=== PATIENT | female | born 1935 | race Two or more races ===

== ENCOUNTER 2024-04-27 09:01 | Outpatient (CLI) | payer OTHER | END 2024-04-27 09:02 | disposition home or self-care (01) | LOC: NUCLEAR 09:01 | PROVIDERS: ATTEND Specialist | DX: I87.2 Venous insufficiency (chronic) (peripheral) (principal) ==

== ENCOUNTER → 2024-05-04 09:08 | Outpatient (CLI) | payer OTHER | END | disposition home or self-care (01) | LOC: NUCLEAR 09:00 | PROVIDERS: ATTEND Specialist | DX: I73.9 Peripheral vascular disease, unspecified (principal) ==

== ENCOUNTER 2024-12-21 11:00 | Emergency (ER) | payer OTHER ==
[~2024-12-21] VITALS: Ht 152.4 cm; Wt 45.4 kg
[2024-12-21] MEDS ORDERED: DIGOXIN125 MCG PO (11:23)
[2024-12-21] MEDS ORDERED: METOPROLOL SUC100 MG PO (11:23)
[2024-12-21] MEDS ORDERED: ISOSORBIDE MONO30 M2 PO (11:23)
[2024-12-21] MEDS ORDERED: LISINOPRIL-HCT1 EAC2 PO (11:24)
[2024-12-21 12:26] LABS: HEMATOCRIT 31.7 % (36.0-45.00); HEMOGLOBIN 10.3 g/dL (12.0-15.00); MEAN CELL VOLUME 79.7 fL (80.00-100.00); MEAN CORPUSCULAR HEMOGLOBIN 25.9 pg (27.00-32.0); MEAN CORPUSCULAR HGB CONC 32.5 g/dl (32.0-36.0); PLATELET COUNT 257 K/uL (150-450); RED BLOOD COUNT 3.97 M/uL (4.00-6.00); RED CELL DISTRIBUTION WIDTH 15.7 % (11.5-14.5)
== END 2024-12-21 12:48 | disposition home or self-care (01) ==
LOC: ER 11:01
PROVIDERS: General Practice
DX: L30.9 Dermatitis, unspecified (principal); R21 Rash and other nonspecific skin eruption

== ENCOUNTER 2025-08-09 18:28 | Emergency (ER) | payer OTHER ==
[~2025-08-09] VITALS: Ht 160 cm; Wt 48.5 kg
[~2025-08-09 18:28] MED LIST: DIGOXIN125 MCG PO; ISOSORBIDE MONO30 M2 PO; LISINOPRIL-HCT1 EAC2 PO; METOPROLOL SUC100 MG PO
[2025-08-09] MEDS ORDERED: TOPROL XL100 M1 PO (19:14)
[2025-08-09] MEDS ORDERED: OMEPRAZOLE-BIC1 EAC1 PO (19:14)
[2025-08-09] MEDS ORDERED: ISOSORBIDE DINI30 MG PO (19:14)
[2025-08-09] MEDS ORDERED: VALSARTAN80 MG PO (19:14)
[2025-08-09] MEDS ORDERED: LASIX20 MG PO (19:15)
[2025-08-09] MEDS ORDERED: SIMVASTATIN5 MG PO (19:15)
[2025-08-09] MEDS ORDERED: ELIQUIS2.5 MG PO (19:15)
[2025-08-09] MEDS ORDERED: CLONAZEPAM0.5 M1 PO (19:15)
[2025-08-09] MEDS ORDERED: LANOXIN125 MCG PO (19:15)
[2025-08-09] MEDS ORDERED: METHYLPREDNISOLONE SOD SUCC 125 MG VIAL ONE (19:55)
[2025-08-09] MEDS ORDERED: FAMOTIDINE/PF 20 MG/2 ML VIAL ONE ×2 (19:55)
[2025-08-09] MEDS ORDERED: CEFTRIAXONE SODIUM 1,000 MG VIAL ONE (19:55)
[2025-08-09] MEDS ORDERED: CEFTRIAXONE SODIUM 1,000 MG VIAL IV ONE (20:00)
[2025-08-09] MEDS ORDERED: FAMOtidine 10 MG/ML (4ML VIAL) IV ONE (20:00)
[2025-08-09] MEDS ORDERED: METHYLPREDNISOLONE SOD SUCC 125 MG VIAL IV ONE (20:00)
[2025-08-09 20:36] LABS: BASO % 0.5 % (0.1-1.2); EOS # 3.53 (0.04-0.54); LYMPH # 1.81 (1.18-3.74); LYMPH % 14.6 % (19.3-53.1); MEAN PLATELET VOLUME 10.20 fl (9.4-12.4); MONO # 1.05 (0.24-0.82); MONO % 8.5 % (4.7-12.5); NEUT # 5.86 (1.56-6.13); NEUT % 47.4 % (34.0-71.1); RED CELL DISTRIBUTION WIDTH 13.8 % (11.6-14.4)
[2025-08-09 21:00] LABS: INR 1.18
[2025-08-09 21:04] LABS: ALT/SGPT 10.0 U/L (12-78); AST/SGOT 13.0 U/L (15-37); BILIRUBIN TOTAL 0.54 mg/dL (0.3-1.2); BUN CREA RATIO 17.0 (7.0-25.0); CREATININE SERUM 1.69 mg/dL (0.55-1.02); GFR 28.49; GLOBULINA 3.4 G/DL (2.4-3.5); GLUCOSE FASTING 123.0 mg/dL (65-100); OSMOLALITY SERUM 281.0 MOSM/KG (275-295)
[2025-08-09 21:05] LABS: URINE APPEARANCE Cloudy; URINE BILIRRUBIN Negative (NEGATIVE); URINE BLOOD Negative; URINE COLOR Yellow; URINE GLUCOSE Negative (NEGATIVE); URINE KETONE Negative (NEGATIVE); URINE LEUKOCYTE Large; URINE NITRATE Negative; URINE PROTEIN Negative (NEGATIVE); URINE UROBILINOGEN 0.2 E.U./dl
[2025-08-09 21:06] LABS: URINE BACTERIA 751.1 uL (0.0-1933); URINE CAST 3.37 uL (0.0-1.40); URINE EPITHELIAL CELLS 48.7 uL (0.0-38.8); URINE RBC 4.9 uL (0.0-20.8); URINE WBC 678.4 uL (0.0-23.2)
[2025-08-09 21:23] LABS: EOS % 28.5 % (0.7-7.0); EOSINOPHIL MAN 23.0 %; LYMPHOCYTE MAN 17.0 %; MONOCYTE MAN 7.0 %; NEUTROPHILS MAN 53.0 %
[2025-08-09 21:26] LABS: URINE MUCUS SCANT
[2025-08-09 21:27] LABS: TYPE CELLS SQUAMOUS
[2025-08-09] MEDS ORDERED: PROBIOTIC1 EAC2 PO (23:14)
[2025-08-09] MEDS ORDERED: PEPCID AC20 MG PO (23:14)
[2025-08-09] MEDS ORDERED: CIPRO500 MG PO (23:14)
== END 2025-08-09 23:41 | disposition home or self-care (01) ==
LOC: ER 18:29
PROVIDERS: General Practice
DX: K52.89 Other specified noninfective gastroenteritis and colitis (principal); L97.828 Non-pressure chronic ulcer of other part of left lower leg with other specified severity; L97.818 Non-pressure chronic ulcer of other part of right lower leg with other specified severity; I10 Essential (primary) hypertension; Z85.038 Personal history of other malignant neoplasm of large intestine; Z85.42 Personal history of malignant neoplasm of other parts of uterus
CPT/HCPCS: 36415; 96365; 99282; J0696; J3490